=== PATIENT | male | born 1995 | race Caucasian/White ===

== ENCOUNTER 2021-01-18 12:00 | Emergency (ER) | payer BC, SELFPAY ==
[2021-01-18 12:01] VITALS: BP 135/84; PULSE 63; RESP 17; TEMP 36.7; O2SAT 98; BMI 33.2
--- NOTE | 2021-01-18 12:19 | XR_ITS ---
PROCEDURE: XR LUMBAR SPINE 2-3V CLINICAL INDICATION: LOWER BACK PAIN COMPARISON: CR LS5 LUMBAR SPINE 5 VIEWS from 05/24/2014 FINDINGS: No acute fractures or listhesis. Bone density is normal. Vertebral body heights and alignment are maintained. Paravertebral soft tissues are unremarkable IMPRESSION: . no acute fractures or listhesis. Dictated by: Val Lawton 01/18/2021 13:10 Val Lawton in [place] 01/18/2021 13:10
--- NOTE | 2021-01-18 12:19 | XR_ITS ---
PROCEDURE: XR HIP RT 2-3V W/PELVIS CLINICAL INDICATION: RIGHT HIP PAIN COMPARISON: No exams were available for comparison FINDINGS: No fracture or dislocation is evident. No significant degenerative change. No lytic or blastic change. Unremarkable soft tissues. IMPRESSION: No acute findings. Dictated by: Val Lawton 01/18/2021 13:02 Val Lawton in [facility] 01/18/2021 13:02
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
[2021-01-18 13:00] VITALS: BP 145/75; PULSE 116; RESP 18; TEMP 36.6; O2SAT 98
== END 2021-01-18 13:16 | disposition home or self-care (01) ==
PROVIDERS: Emergency Provider Emergency Medicine; PCP Emergency Medicine
DX: S39.012A Strain of muscle, fascia and tendon of lower back, initial encounter (principal); S70.01XA Contusion of right hip, initial encounter; V29.3XXA Motorcycle rider (driver) (passenger) injured in unspecified nontraffic accident, initial encounter; Y92.488 Other paved roadways as the place of occurrence of the external cause
CPT/HCPCS: 72100; 73502; 99282

== ENCOUNTER 2021-04-20 12:53 | Emergency (ER) | payer BC, SELFPAY ==
[2021-04-20] VITALS (14 sets, daily range): BP systolic 112–134; BP diastolic 70–78; PULSE 65–94; RESP 9–20; TEMP 36.9–37.7; O2SAT 90–99; BMI 33.2
--- NOTE | 2021-04-20 13:03 | ECG_ITS ---
APPROVED REPORT Exam: Resting ECG HR:83 bpm ECG Measurements Heart Rate 83 AXES NH 158 P 67 QRSd 110 QRS 22 QT 358 T 45 QTc 420 Conclusion Normal sinus rhythm Normal ECG Electronically signed by : Jonh Hernandez MD 04/21/2021 22:29:49
--- NOTE | 2021-04-20 13:09 | XR_ITS ---
PROCEDURE: XR CHEST PORTABLE CLINICAL HISTORY: sob Covid19 positive COMPARISON: CR CXR CHEST(2 VIEWS-NOT PORTABLE) from 05/24/2014 CR CXR CHEST(2 VIEWS-NOT PORTABLE) from 06/22/2014 CR CXR CHEST(2 VIEWS-NOT PORTABLE) from 11/23/2015 FINDINGS: The cardiomediastinal silhouette and pulmonary vascularity are within normal limits. The lungs are clear without infiltrates, suspicious nodules, or pleural effusions. Left perihilar nodular opacity is present and may be due to granuloma stable since 05/24/2014. No acute bony findings. IMPRESSION: No acute findings. Dictated by: Aydin Vaz MD 04/20/2021 14:03 Aydin Vaz MD in [place] 04/20/2021 14:03
[2021-04-20 13:41] LABS: Basophils # 0.1 K/mm3 (0-0.2); Basophils % 1.5 % (0.1-2.0); Eosinophils % 0.3 % (0.1-12.0); Hematocrit 42.8 % (42.0-52.0); Hemoglobin 14.8 g/dL (14.1-18.0); Lymphocytes # 2.1 K/mm3 (0.7-4.5); Lymphocytes % 43.5 % (10-50); Mean Corpuscular HGB Conc 34.6 g/dL (31.8-35.4); Mean Corpuscular Hemoglobin 29.7 pg (27.0-31.2); Mean Corpuscular Volume 85.7 fl (80-94); Mean Platelet Volume 7.4 fl (7.4-10.4); Monocytes # 0.6 K/mm3 (0.1-1.0); Monocytes % 11.6 % (1.7-9.3); Neutrophils # 2.1 K/mm3 (1.8-7.8); Neutrophils % 43.1 % (37.0-80.0); Platelet Count 314 K/mm3 (142-424); Red Cell Distribution Width 13.2 % (11.5-17.5); White Blood Count 4.8 K/mm3 (4.8-10.8)
[2021-04-20 13:45] LABS: Chloride 98 mmol/L (98-107); Potassium 3.3 mmoL/L (3.5-5.1); Sodium 134 mmol/L (136-145)
[2021-04-20 13:48] LABS: Alanine Aminotransferase 59 U/L (12-78); Albumin Level 4.4 g/dl (3.5-5.0); Albumin/Globulin Ratio 1.3 (1.1-1.8); Alkaline Phosphatase 91 U/L (38-126); Anion Gap 14.3 mEq/L (5-15); Aspartate Amino Transferase 51 U/L (17-59); Bilirubin,Total 0.4 mg/dl (0.2-1.3); Blood Urea Nitrogen 9 mg/dl (9-20); Carbon Dioxide 25 mmol/L (22.0-30.0); Creatinine Clearance Estimated 177 mL/min (50-200); Estimated Glomerular Filt Rate 91 ml/min (>60); GFR (African American) 110 ML/MIN (>60); Globulin 3.5 g/dL (1.3-3.2); Glucose 99 mg/dl (74-100); Total Protein,Serum 7.9 g/dl (6.3-8.2)
--- NOTE | 2021-04-20 13:54 | HMH.EDGENADL ---
ED Disposition Clinical Impression: COVID-19 Disposition: Home, Self-Care Condition on Discharge: Good Additional Instructions: Drink plenty of fluid. Tylenol every 6 hours. Turn to the emergency room for any new symptoms. Take multivitamins daily. Use inhalers as directed. Self quarantine for 2 weeks. Prescriptions: Benzonatate [Tessalon Perle 100mg Cap*] 100 mg PO TID 10 Days #30 cap Transmission Status: Received by [facility] Azithromycin [Zithromax 1gm packet] 1 gm PO ONCE #1 packet Transmission Status: Received by [facility] Referrals: Provider,Referral, [Primary Care Provider] - - Critical Care Critical Care Time: No Attestation: On 04/20/21, the high probability of a clinically significant, sudden or life threatening deterioration of the following system(s) required my full and direct attention, intervention and personal management. The time I documented below is in addition to time spent performing reported procedures but includes the following listed in this critical care notation. Medical Decision Making - Medical Records MR Comment: Patient was given a liter of IV fluid. His oxygen saturation was 96%. Chest x-ray was done. - Serge Inquiry Pt receiving controlled substance: No Serge was queried for this patient: No Vital Signs: 04/20/21 12:53 04/20/21 12:57 04/20/21 13:00 Temperature 98.5 F Temperature Source Oral Pulse Rate 94 H 89 Pulse Rate [Right] 89 Respiratory Rate 20 17 Blood Pressure 134/76 124/73 Blood Pressure [Right Arm] 134/76 Blood Pressure Mean Blood Pressure Mean [Right Arm] 95 02 Sat by Pulse Oximetry 98 98 97 Oxygen Delivery Method Room Air Room Air Oxygen Flow Rate (LPM) 04/20/21 13:31 04/20/21 14:00 04/20/21 14:08 Temperature 100 F H Temperature Source Oral Pulse Rate 81 79 Pulse Rate [Right] Respiratory Rate 18 Blood Pressure 131/70 128/78 Blood Pressure [Right Arm] Blood Pressure Mean Blood Pressure Mean [Right Arm] 02 Sat by Pulse Oximetry 90 L 96 95 Oxygen Delivery Method Room Air Nasal Cannula Nasal Cannula Oxygen Flow Rate (LPM) 2 04/20/21 14:31 04/20/21 15:00 04/20/21 15:01 Temperature Temperature Source Pulse Rate 76 70 74 Pulse Rate [Right] Respiratory Rate 13 9 L 10 L Blood Pressure 114/73 119/70 Blood Pressure [Right Arm] Blood Pressure Mean 85 Blood Pressure Mean [Right Arm] 02 Sat by Pulse Oximetry 99 96 97 Oxygen Delivery Method Nasal Cannula Nasal Cannula Oxygen Flow Rate (LPM) 2 2 04/20/21 15:15 04/20/21 15:30 04/20/21 15:31 Temperature Temperature Source Pulse Rate 71 70 77 Pulse Rate [Right] Respiratory Rate 16 12 14 Blood Pressure 112/74 Blood Pressure [Right Arm] Blood Pressure Mean 80 Blood Pressure Mean [Right Arm] 02 Sat by Pulse Oximetry 95 97 97 Oxygen Delivery Method Oxygen Flow Rate (LPM) 04/20/21 15:45 04/20/21 16:38 Temperature 98.4 F Temperature Source Oral Pulse Rate 65 66 Pulse Rate [Right] Respiratory Rate 12 16 Blood Pressure 124/76 Blood Pressure [Right Arm] Blood Pressure Mean Blood Pressure Mean [Right Arm] 02 Sat by Pulse Oximetry 96 Oxygen Delivery Method Room Air Oxygen Flow Rate (LPM) - Lab Data Lab Results 04/20/21 13:13: WBC 4.8, RBC 5.00, Hgb 14.8, Hct 42.8, MCV 85.7, MCH 29.7, MCHC 34.6, RDW 13.2, Plt Count 314, MPV 7.4, Neut % (Auto) 43.1, Lymph % (Auto) 43.5, Wood % (Auto) 11.6 H, Eos % (Auto) 0.3, Baso % (Auto) 1.5, Neut # (Auto) 2.1, Lymph # (Auto) 2.1, Wood # (Auto) 0.6, Eos # (Auto) 0.0, Baso # (Auto) 0.1 04/20/21 13:13: Sodium 134 L, Potassium 3.3 L, Chloride 98, Carbon Dioxide 25, Anion Gap 14.3, BUN 9, Creatinine 1.00, Estimated Creat Clear 177, Estimated GFR 91, Est GFR ( Amer) 110, Glucose 99, Calcium 9.0, Total Bilirubin 0.4, AST 51, ALT 59, Alkaline Phosphatase 91, Troponin I < 0.01, Total Protein 7.9, Albumin 4.4, Globul
[2021-04-20 14:01] LABS: Troponin I < 0.01 ng/ml (0.00-0.034)
--- NOTE | 2021-04-20 14:24 | PC.NURSE ---
Pt's parents are outside in their car. Pt updated on this and made him aware of visitor policy. Pt verbalizes understanding.
--- NOTE | 2021-04-20 15:28 | PC.NURSE ---
Gave status update to patient ex- with patient permission
== END 2021-04-20 16:39 | disposition home or self-care (01) ==
PROVIDERS: Emergency Provider Internal Medicine
DX: U07.1 COVID-19 (principal); I10 Essential (primary) hypertension
CPT/HCPCS: 71045; 80053; 84484; 85025; 93005; 96365; 99283

== ENCOUNTER → 2021-06-28 14:32 | Outpatient (CLI) | payer BC, SELFPAY ==
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
== END ==
PROVIDERS: PCP Emergency Medicine; Visit Provider Physician Assistant
DX: M54.50 Low back pain, unspecified (principal); M25.561 Pain in right knee
CPT/HCPCS: 72148; 73721; 76376

== ENCOUNTER 2021-07-07 09:00 | Outpatient (RCR) | payer OTHER, BC, SELFPAY ==
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
== END 2021-07-07 09:05 | disposition home or self-care (01) ==
LOC: PT 09:00
PROVIDERS: PCP Emergency Medicine; Visit Provider Physician Assistant
DX: M54.16 Radiculopathy, lumbar region (principal)
CPT/HCPCS: 97010; 97012; 97014; 97035; 97110; 97163; G0283

== ENCOUNTER 2022-04-09 18:38 | Emergency (ER) | payer BC, SELFPAY ==
[2022-04-09 19:19] VITALS: BP 119/72; PULSE 62; RESP 18; TEMP 36.8; O2SAT 97; BMI 32.5
--- NOTE | 2022-04-09 19:19 | HMH.EDUTC ---
[facility] Disposition Clinical Impression: Dental abscess, Pain, dental, Jaw pain Disposition: Home, Self-Care Condition on Discharge: Good Instructions: Tooth Abscess, DI for Tooth Abscess Additional Instructions: Drink plenty of fluids. Take ibuprofen for fever. Take the medications as directed. Follow up with your regular doctor. Make sure you follow up with your dentist. GO TO THE ER FOR ANY WORSENING SYMPTOMS Throw your tooth brush away and get a new one. Quarantine until you know the results of your covid-19 test. Notify your school or workplace of your results and follow their instructions regarding return to work/school. He has been unable to work because of his current symptoms, so his work excuse needs to count for 04/05 (sunday) and 04/06 () of last week. Prescriptions: Ibuprofen [Ibuprofen 800mg Tablet] 800 mg PO Q8HP PRN #30 tab PRN Reason: Moderate Pain Transmission Status: Received by [facility] Amoxicillin/Potassium Clav [Amox-Clav 875-125 mg Tablet] 1 tab PO BID #20 tab Transmission Status: Received by [facility] Referrals: Charlene Moncada APRN [Primary Care Provider] - Time of Disposition: 19:27 Medical Decision Making - Medical Records Medical records reviewed: No: I reviewed the patient's medical records. - Serge Inquiry Pt receiving controlled substance: No Vital Signs: 04/09/22 19:19 Temperature 98.3 F Temperature Source Oral Pulse Rate [Left] 62 Respiratory Rate 18 Blood Pressure [Right Arm] 119/72 Blood Pressure Mean [Right Arm] 87 02 Sat by Pulse Oximetry 97 Orders (Tests/Meds): ED MEDICATIONS Discontinued Medications Generic Name Dose Route Start Last Admin Trade Name Freq PRN Reason Stop Dose Admin Amoxicillin/Clavulanate Potassium 1 each 04/09/22 19:24 04/09/22 19:28 Amoxicillin/Pot Clavulan 500mg Tablet PO 04/09/22 19:25 1 each ONCE ONE Administration [facility] HPI - General Stated complaint: dental pain Time Seen by Provider: 04/09/22 19:19 - History of Present Illness Provider Complaint: He has had severe dental pain for the past 4 days. He has a tooth that is broken in his left upper jaw. He has an appointment with his dentist coming up next Sunday, but he is unable to wait that long to be checked. - Related Data Previous Rx's Medication Instructions Recorded lorazepam 0.5 mg tablet 0.5 mg PO TID #90 tab 08/03/21 gabapentin 300 mg capsule 600 mg PO BID PRN #120 cap 09/15/21 lidocaine 5 % topical patch 1 patch TOPICAL DAILY PRN #30 each 09/15/21 tizanidine 4 mg capsule 4 mg PO TID PRN #90 cap 09/15/21 tramadol 50 mg tablet 100 mg PO BID PRN #60 tab 09/29/21 Amoxicillin/Potassium Clav 1 tab PO BID #20 tab 04/09/22 [Amox-Clav 875-125 mg Tablet] Ibuprofen [Ibuprofen 800mg 800 mg PO Q8HP PRN #30 tab 04/09/22 Tablet] Allergies Allergy/AdvReac Type Severity Reaction Status Date / Time No Known Allergies Allergy Verified 04/09/22 19:21 [facility] History - Hepatitis A Screen Attestation statement:: This patient has been screened for Hepatitis A risk factors. I have reviewed the patient's past medical history: Yes Medical History: Reports:: Anxiety, Hypertension, Migraine Other Medical History: Reports: Other Other Surgeries: Yes: Other Amputation: No Fractures: No - Social History Smoking Status: Current every day smoker Tobacco Type: cigarettes # Packs/Day (cigarettes): 1 Alcohol Intake: current Alcohol Intake Frequency:: a few times a month Substance Use Type: denies use, marijuana Occupational Status: employed Housing: apartment Household Members: family - Psychiatric History Pschychiatric History:: Reports:: Anxiety Family Hx:: Hypertension, Cancer ROS Obtained: Yes All systems reviewed & no additional complaints - Constitutional Constitutional: Denies chills, Denies fever(s) - Eyes Eyes: Denies eye discharge - ENT Ears, Nose, M
[2022-04-09 19:45] VITALS: BP 119/72; PULSE 62; RESP 18; TEMP 36.8
== END 2022-04-09 19:46 | disposition home or self-care (01) ==
PROVIDERS: Emergency Provider Nurse Practitioner Family; PCP Nurse Practitioner Family
DX: K04.7 Periapical abscess without sinus (principal)
CPT/HCPCS: 99212; G0463

== ENCOUNTER 2022-08-06 17:35 | Emergency (ER) | payer SELFPAY ==
[2022-08-06 18:40] VITALS: BP 149/89; PULSE 63; RESP 19; TEMP 36.8; O2SAT 98; BMI 29.5
--- NOTE | 2022-08-06 19:17 | EXP.UTC ---
Discharge Plan Disposition Patient Disposition: Home, Self-Care Condition: Good Prescriptions Prescriptions: New ibuprofen [IBU] 800 mg tablet 800 mg PO TIDP PRN (Reason: Moderate Pain) Qty: 20 0RF amoxicillin-pot clavulanate 875-125 mg Tablet 1 tab PO Q12H Qty: 20 0RF No Action gabapentin 300 mg capsule 600 mg PO BID PRN (Reason: pain) Qty: 120 2RF tizanidine [Zanaflex] 4 mg capsule 4 mg PO TID PRN (Reason: muscle spasticity) Qty: 90 0RF lidocaine 5 % adhesive patch,medicated 1 patch TOPICAL DAILY PRN (Reason: pain) Qty: 30 5RF Rx Instructions: leave on most painful area for up to 12 hrs lorazepam [Ativan] 0.5 mg tablet 0.5 mg PO TID Qty: 90 2RF tramadol 50 mg tablet 100 mg PO BID PRN (Reason: pain) Qty: 60 0RF amoxicillin-pot clavulanate 1 EACH tablet 1 tab PO BID Qty: 20 0RF ibuprofen 800 MG tablet 800 mg PO Q8HP PRN (Reason: Moderate Pain) Qty: 30 0RF Referrals Follow up/Referrals: Will Rodgers MD [Primary Care Provider] - See instructions Activity Restrictions/Add. Instructions Additional Instructions/Restrictions: Use dental balls as directed Take medication as prescribed Follow up with Dentist as schedued Return if needed Straight to ER if any life threatening symptoms Clinical Impressions Clinical Impression: Dental abscess Instructions Patient Instructions: DI for Tooth Abscess, Ibuprofen Discharge ED Provider: Elsa George [facility] General Stated complaint: dental pain Mode of Arrival: Ambulatory Source of Information: Patient Limitations: No Limitations Time Seen by Provider: 08/06/22 19:17 Description of Symptoms (Recalled from Triage Doc. by RN): PATIENT C/O DENTAL PAIN TO RIGHT SIDE X 2 DAYS HEENT Symptoms (Recalled from RN notes): Yes Resp Symptoms (Recalled from RN notes): No Skin Symptoms (Recalled from RN notes): No MS Symptoms (Recalled from RN notes): No Functional Status (Recalled from RN notes): WNL History of Present Illness Provider Complaint: Patient state that he has been having pain on his right upper and lower teeth on the right side State that he has two broken teeth in the right back and one on the top State that he made appointment with dentist but this morning he woke up and his jaw was swollen and having worsening of pain so he came in to get it checked and see if he could get some antibiotics Related Data Previous Rx's Medication Instructions Recorded lorazepam 0.5 mg tablet (Ativan) 0.5 mg PO TID #90 tabs 08/03/21 gabapentin 300 mg capsule 600 mg PO BID PRN pain #120 caps 09/15/21 lidocaine 5 % topical patch 1 patch topical DAILY PRN pain #30 09/15/21 ea tizanidine 4 mg capsule (Zanaflex) 4 mg PO TID PRN muscle spasticity 09/15/21 #90 caps tramadol 50 mg tablet 100 mg PO BID PRN pain #60 tabs 09/29/21 amoxicillin 875 mg-potassium 1 tab PO BID #20 tabs 04/09/22 clavulanate 125 mg tablet ibuprofen 800 mg tablet 800 mg PO Q8HP PRN Moderate Pain 04/09/22 #30 tabs amoxicillin 875 mg-potassium 1 tab PO Q12H #20 tabs 08/06/22 clavulanate 125 mg tablet ibuprofen 800 mg tablet (IBU) 800 mg PO TIDP PRN Moderate Pain 08/06/22 #20 tabs Allergies Allergy/AdvReac Type Severity Reaction Status Date / Time No Known Allergies Allergy Verified 04/09/22 19:21 Worker's Comp Is this a Worker's Comp case?: No [facility] Medical History (Updated 08/06/22 @ 19:26 by Elsa George APRN) Anxiety Social History (Updated 08/06/22 @ 18:51 by Argenis Morales RN) Smoking Status: Current every day smoker tobacco type: cigarettes packs per day: 1 alcohol intake: current substance use type: denies use and marijuana current occupational status: employed Travel in the last 8 weeks: None household members: family housing: apartment number of children: 2 ROS Obtained: Yes All systems reviewed & no additional complaints except as documented and Yes Systems reviewed as appropriate
[2022-08-06 19:27] VITALS: BP 149/89; PULSE 63; RESP 19; TEMP 36.8; O2SAT 98
== END 2022-08-06 19:35 | disposition home or self-care (01) ==
PROVIDERS: Emergency Provider Nurse Practitioner; PCP Emergency Medicine
DX: K04.7 Periapical abscess without sinus (principal); R68.84 Jaw pain; M62.838 Other muscle spasm; F41.9 Anxiety disorder, unspecified; F17.210 Nicotine dependence, cigarettes, uncomplicated; Z79.1 Long term (current) use of non-steroidal anti-inflammatories (NSAID); Z79.899 Other long term (current) drug therapy
CPT/HCPCS: 99212; G0463

== ENCOUNTER 2022-09-07 20:56 | Emergency (ER) | payer BC, MEDICAID, SELFPAY ==
[2022-09-07 20:57] VITALS: BP 120/76; PULSE 62; RESP 17; TEMP 36.7; O2SAT 97; BMI 27.1
--- NOTE | 2022-09-07 21:56 | HMH.EDGENADL ---
Discharge Plan Disposition Patient Disposition: Home, Self-Care Condition: Good Prescriptions Prescriptions: New doxycycline hyclate 100 mg capsule 100 mg PO DAILY 10 Days Qty: 10 0RF No Action gabapentin 300 mg capsule 600 mg PO BID PRN (Reason: pain) Qty: 120 2RF tizanidine [Zanaflex] 4 mg capsule 4 mg PO TID PRN (Reason: muscle spasticity) Qty: 90 0RF lidocaine 5 % adhesive patch,medicated 1 patch TOPICAL DAILY PRN (Reason: pain) Qty: 30 5RF Rx Instructions: leave on most painful area for up to 12 hrs lorazepam [Ativan] 0.5 mg tablet 0.5 mg PO TID Qty: 90 2RF tramadol 50 mg tablet 100 mg PO BID PRN (Reason: pain) Qty: 60 0RF amoxicillin-pot clavulanate 1 EACH tablet 1 tab PO BID Qty: 20 0RF ibuprofen 800 MG tablet 800 mg PO Q8HP PRN (Reason: Moderate Pain) Qty: 30 0RF ibuprofen [IBU] 800 mg tablet 800 mg PO TIDP PRN (Reason: Moderate Pain) Qty: 20 0RF amoxicillin-pot clavulanate 875-125 mg Tablet 1 tab PO Q12H Qty: 20 0RF Referrals Follow up/Referrals: Will Rodgers MD [Primary Care Provider] - See instructions Activity Restrictions/Add. Instructions Additional Instructions/Restrictions: Please follow up with your primary care physician in 1-2 days for further evaluation. You have been given a script for testicular scrotal ultrasound to be performed tomorrow given your chronic testicular pain. Please take antibiotic as prescribed. You have been given antibiotic please take as prescribed given concern for possible infection. You will be called and notified if your STD results aer positive. Clinical Impressions Clinical Impression: Chronic pain in testicle Instructions Patient Instructions: DI for Testicular Pain Discharge ED Provider: Stacey Wilson General Adult HPI General Chief complaint: Urogenital-Male Stated complaint: lump on penis Time Seen by Provider: 09/07/22 21:00 Mode of Arrival: Family Vehicle Source of Information: Patient Limitations: No Limitations Description of Symptoms (Recalled from ER Triage Doc. by RN): Pt c/o lesion to the left side of his scrotum. States it's been there a while but now has become sore. History of Present Illness HPI narrative: Mr. Christopher is a 27 yo w/ no significant PMH presenting to the ED for left sided scrotal lesion. Patient reports it has been there for multiple months, but reports he was in the shower and he rubbed up against it and it was more sore to touch, prompting today's visit. Patient denies any dysuria, hematuria or other urinary sx. No penile discharge. No overlying skin discoloration. No fevers or other infectious like symptoms. One sexual partner, no protection. MD complaint: testicular pain Related Data Previous Rx's Medication Instructions Recorded lorazepam 0.5 mg tablet (Ativan) 0.5 mg PO TID #90 tabs 08/03/21 gabapentin 300 mg capsule 600 mg PO BID PRN pain #120 caps 09/15/21 lidocaine 5 % topical patch 1 patch topical DAILY PRN pain #30 09/15/21 ea tizanidine 4 mg capsule (Zanaflex) 4 mg PO TID PRN muscle spasticity 09/15/21 #90 caps tramadol 50 mg tablet 100 mg PO BID PRN pain #60 tabs 09/29/21 amoxicillin 875 mg-potassium 1 tab PO BID #20 tabs 04/09/22 clavulanate 125 mg tablet ibuprofen 800 mg tablet 800 mg PO Q8HP PRN Moderate Pain 04/09/22 #30 tabs amoxicillin 875 mg-potassium 1 tab PO Q12H #20 tabs 08/06/22 clavulanate 125 mg tablet ibuprofen 800 mg tablet (IBU) 800 mg PO TIDP PRN Moderate Pain 08/06/22 #20 tabs doxycycline hyclate 100 mg capsule 100 mg PO DAILY 10 days #10 caps 09/07/22 Allergies Allergy/AdvReac Type Severity Reaction Status Date / Time No Known Allergies Allergy Verified 04/09/22 19:21 [facility] Disclaimer: The information contained in this section may have been updated after the patient was seen, as this information can be updated by other users. Medical History (Updated 09/07/22 @ 21:54 by Stacey Wilson MD) Riccardo
[2022-09-07 22:11] VITALS: BP 121/70; PULSE 78; RESP 19; TEMP 36.7; O2SAT 98
== END 2022-09-07 22:31 | disposition home or self-care (01) ==
PROVIDERS: Emergency Provider Student in an Organized Health Care Education/Training Program; PCP Emergency Medicine
DX: N50.89 Other specified disorders of the male genital organs (principal); N50.819 Testicular pain, unspecified; G89.29 Other chronic pain
CPT/HCPCS: 96372; 99283

== ENCOUNTER → 2022-09-08 10:36 | Outpatient (CLI) | payer BC, MEDICAID, SELFPAY ==
--- NOTE | 2022-09-08 10:53 | US_ITS ---
FINAL REPORT CLINICAL HISTORY: TESTICULAR PAIN FINDINGS: Technique: Ultrasound images of the testicles were obtained. Findings: The testicles are normal in size. No intratesticular mass identified. Arterial flow is identified bilaterally. There is a small right hydrocele. The epididymal structures are unremarkable. IMPRESSION: No intratesticular mass or evidence of torsion. Small right hydrocele. Reviewed, Interpreted and Dictated by Eric Nelson III, MD Transcribed by Jesús Daugherty Authenticated and [facility]
== END ==
PROVIDERS: PCP Emergency Medicine; Visit Provider Student in an Organized Health Care Education/Training Program
DX: N50.819 Testicular pain, unspecified (principal)
CPT/HCPCS: 76870

== ENCOUNTER → 2022-12-12 09:30 | Outpatient (CLI) | payer MEDICAID, SELFPAY ==
[2022-12-12 13:42] LABS: Basophils # 0.1 K/mm3 (0-0.2); Basophils % 1.3 % (0.1-2.0); Eosinophils # 0.3 K/mm3 (0.0-0.4); Eosinophils % 3.9 % (0.1-12.0); Hemoglobin 14.3 g/dL (14.1-18.0); Lymphocytes % 28.8 % (10-50); Mean Corpuscular HGB Conc 32.6 g/dL (31.8-35.4); Mean Corpuscular Hemoglobin 30.1 pg (27.0-31.2); Mean Corpuscular Volume 92.4 fl (80-94); Monocytes # 0.6 K/mm3 (0.1-1.0); Monocytes % 8.6 % (1.7-9.3); Neutrophils # 3.9 K/mm3 (1.8-7.8); Neutrophils % 57.4 % (37.0-80.0); Platelet Count 387 K/mm3 (142-424); Red Blood Count 4.76 M/mm3 (4.60-6.20); White Blood Count 6.8 K/mm3 (4.8-10.8)
[2022-12-12 13:49] LABS: Alanine Aminotransferase 39 U/L (12-78); Albumin Level 4.3 g/dl (3.5-5.0); Albumin/Globulin Ratio 1.5 (1.1-1.8); Alkaline Phosphatase 97 U/L (38-126); Aspartate Amino Transferase 36 U/L (17-59); Bilirubin,Total 0.4 mg/dl (0.2-1.3); Blood Urea Nitrogen 18 mg/dl (9-20); Calcium 9.3 mg/dl (8.4-10.2); Carbon Dioxide 27 mmol/L (22.0-30.0); Chloride 106 mmol/L (98-107); Estimated Glomerular Filt Rate 136 ml/min (>60); GFR (African American) 165 ML/MIN (>60); Globulin 2.9 g/dL (1.3-3.2); Glucose 82 mg/dl (74-100); Sodium 140 mmol/L (136-145); Total Protein,Serum 7.2 g/dl (6.3-8.2); Uric Acid 5.7 mg/dl (3.5-8.5)
[2022-12-13 18:03] LABS: Vitamin B12 425 pg/mL (239-931)
== END ==
PROVIDERS: PCP Nurse Practitioner Family; Visit Provider Nurse Practitioner Family
DX: M79.671 Pain in right foot (principal); M79.672 Pain in left foot; R20.0 Anesthesia of skin; R53.83 Other fatigue
CPT/HCPCS: 80053; 82607; 84550; 85025

== ENCOUNTER 2023-01-20 11:58 | Emergency (ER) | payer MEDICAID, SELFPAY ==
--- NOTE | 2023-01-20 12:00 | PC.NURSE ---
ARACELIS MATT at
--- NOTE | 2023-01-20 12:03 | CT_ITS ---
PROCEDURE INFORMATION: Exam: CT Head Without Contrast Exam date and time: 01/20/2023 12:35 PM Age: 27 years old Clinical indication: Altered mental status/memory loss; Patient HX: PT unable to remember anything from yesterday, confused. Nkt; Additional info: AMS TECHNIQUE: Imaging protocol: Computed tomography of the head without contrast. Radiation optimization: All CT scans at this facility use at least one of these dose optimization techniques: automated exposure control; mA and/or kV adjustment per patient size (includes targeted exams where dose is matched to clinical indication); or iterative reconstruction. REPORTING DATA: Count of CT and Cardiac NM exams in prior 12 months: This patient has received 0 known CTs and 0 known cardiac nuclear medicine studies in the 12 months prior to the current study. COMPARISON: No relevant prior studies available. FINDINGS: Brain: No evidence of acute parenchymal hemorrhage, extra-axial collection or local regional mass effect. 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 Cerebral ventricles: The ventricles, sulci and cisterns are normal in size and configuration. No hydrocephalus or midline structure shift Pituitary gland and sella: Sellar/parasellar structures, orbits and craniocervical junction are unremarkable Paranasal sinuses: Visualized sinuses are unremarkable. No fluid levels. Mastoid air cells: Visualized mastoid air cells are well aerated. Bones/joints: No calvarial fracture Soft tissues: Unremarkable. IMPRESSION: 1. No acute intracranial abnormality. No calvarial fracture. 2. 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
--- NOTE | 2023-01-20 12:03 | XR_ITS ---
PROCEDURE INFORMATION: Exam: XR Chest Exam date and time: 01/20/2023 12:51 PM Age: 27 years old Clinical indication: Sternal or substernal pain; Patient HX: Cp, body aches, AMS, nkt TECHNIQUE: Imaging protocol: Radiologic exam of the chest. Views: 1 view. COMPARISON: CR XR CHEST PORTABLE 04/20/2021 1:24 PM FINDINGS: Lungs: No evidence of pneumonia or interstitial edema. Pleural spaces: Unremarkable. No pleural effusion. No pneumothorax. Heart/Mediastinum: Unremarkable. No cardiomegaly. Bones/joints: Unremarkable. IMPRESSION: No evidence of pneumonia or interstitial edema.
[2023-01-20 12:04] VITALS: PULSE 84; O2SAT 99
[2023-01-20 12:06] VITALS: BP 127/87; PULSE 83; RESP 20; TEMP 37; O2SAT 99; BMI 30.5
--- NOTE | 2023-01-20 12:10 | ECG_ITS ---
APPROVED REPORT Exam: Resting ECG HR:72 bpm ECG Measurements Heart Rate 72 AXES ND 187 P 69 QRSd 124 QRS 9 QT 393 T 44 QTc 417 Conclusion SINUS RHYTHM MODERATE INTRAVENTRICULAR CONDUCTION DELAY [110+ ms QRS DURATION] BORDERLINE ECG UNCONFIRMED REPORT Electronically signed by : Jonh Hernandez MD 01/21/2023 08:06:16
--- NOTE | 2023-01-20 12:12 | HMH.EDGENADL ---
Discharge Plan Disposition Patient Disposition: Home, Self-Care Condition: Good Prescriptions Prescriptions: No Action buprenorphine-naloxone 8-2 mg tablet, sublingual 1 tab sublingual DAILY clonazepam [Klonopin] 0.5 mg tablet 0.5 mg PO BID bupropion HCl 75 mg tablet 75 mg PO BID Referrals Follow up/Referrals: Will Rodgers MD [Primary Care Provider] - See instructions Clinical Impressions Clinical Impression: Syncope Discharge ED Provider: Guy Kurtz General Adult HPI General Chief complaint: Seizure Stated complaint: Feels like hes recently had a seizure, anxious Time Seen by Provider: 01/20/23 12:00 Mode of Arrival: Ambulatory Source of Information: Patient Limitations: No Limitations Description of Symptoms (Recalled from ER Triage Doc. by RN): pt states he feels like he had a seizure, reports history of seizures, states he woke up on the floor in the bathroom, doesn't remember anything, states he just hurts all over, states he is very anxious as well History of Present Illness HPI narrative: This is a very pleasant 27-year-old gentleman who presents with concerns he had a seizure. Patient woke up this morning and was in his normal state of health. Denies any recent illnesses. States he just remembers waking up in the floor. Family member states he fell in the bathroom. Patient states he hurts all over his entire body here. Believes he had a seizure. States he has had seizures in the past. Family member states only medication he is currently on his Klonopin. He has not missed any doses. Patient also complains of anxiety. Related Data Home Medications Medication Instructions Recorded Confirmed buprenorphine 8 mg-naloxone 2 mg 1 tab sublingual DAILY . 12/12/22 01/20/23 sublingual tablet bupropion HCl 75 mg tablet 75 mg PO BID Depression 01/20/23 01/20/23 clonazepam 0.5 mg tablet (Klonopin) 0.5 mg PO BID seizures 01/20/23 01/20/23 Allergies Allergy/AdvReac Type Severity Reaction Status Date / Time No Known Allergies Allergy Verified 01/20/23 12:27 [facility] Disclaimer: The information contained in this section may have been updated after the patient was seen, as this information can be updated by other users. Medical History Anxiety Social History Smoking Status: Current every day smoker tobacco type: cigarettes packs per day: 1 alcohol intake: current substance use type: denies use and marijuana current occupational status: employed Travel in the last 8 weeks: None household members: family housing: apartment number of children: 2 ROS Obtained: Yes All systems reviewed & no additional complaints except as documented Physical Exam General General appearance: alert and in no apparent distress Head Head exam: atraumatic, normocephalic and normal inspection Eye Eye exam: Present normal appearance, PERRL and EOMI ENT ENT exam: Present normal exam Neck Neck exam: Present normal inspection Chest Chest inspection: Present normal inspection Respiratory Respiratory exam: Present normal lung sounds bilaterally Cardiovascular Cardiovascular exam: Present regular rate and normal rhythm Abdominal Exam Abdominal exam: Present soft Extremities Exam Extremities exam: Present normal inspection Back Exam Back exam: Present normal inspection Neurological Exam Neurological exam: Present alert, oriented X3, CN II-XII intact and normal gait Psychiatric Psychiatric exam: Present normal affect and normal mood Skin Skin exam: Present warm and dry Medical Decision Making Serge Inquiry Pt receiving controlled substance: No Vital Signs: 01/20/23 12:06 01/20/23 12:04 01/20/23 12:41 Temperature 98.6 F Temperature Source Oral Pulse Rate 84 74 Pulse Rate [Right Radial] 83 Respiratory Rate 20 Blood Pressure 133/70
--- NOTE | 2023-01-20 12:19 | PC.NURSE ---
pt ambulatory to the restroom for ua sample
--- NOTE | 2023-01-20 12:21 | PC.NURSE ---
Pt given warm blanket, Family at BS
[2023-01-20 12:25] LABS: Microscopic, Urine URINE MICROSCOPIC (MICROSCOPIC)
[2023-01-20 12:27] LABS: Appearance,Urine CLEAR (Clear); Basophils # 0.1 K/mm3 (0-0.2); Basophils % 0.6 % (0.1-2.0); Blood, Urine Negative (Negative); Color,Urine YELLOW (Yellow); Eosinophils # 0.3 K/mm3 (0.0-0.4); Eosinophils % 3.7 % (0.1-12.0); Glucose,Urine (UA) Negative (Negative); Hematocrit 42.8 % (42.0-52.0); Hemoglobin 14.9 g/dL (14.1-18.0); Ketones,Urine TRACE (Negative); Leukocyte Esterase,Urine Negative (Negative); Lymphocytes # 2.3 K/mm3 (0.7-4.5); Lymphocytes % 28.3 % (10-50); Mean Corpuscular HGB Conc 34.7 g/dL (31.8-35.4); Mean Corpuscular Hemoglobin 30.3 pg (27.0-31.2); Mean Corpuscular Volume 87.1 fl (80-94); Mean Platelet Volume 7.4 fl (7.4-10.4); Monocytes # 0.6 K/mm3 (0.1-1.0); Monocytes % 7.3 % (1.7-9.3); Neutrophils # 4.9 K/mm3 (1.8-7.8); Nitrate,Urine Negative (Negative); PH,Urine 6.5 (5.0-8.5); Platelet Count 341 K/mm3 (142-424); Protein,Urine TRACE (Negative); Red Blood Count 4.91 M/mm3 (4.60-6.20); Red Cell Distribution Width 12.8 % (11.5-17.5); White Blood Count 8.2 K/mm3 (4.8-10.8)
--- NOTE | 2023-01-20 12:32 | PC.NURSE ---
pt transported to radiology.
[2023-01-20 12:35] LABS: Chloride 98 mmol/L (98-107); Potassium 3.8 mmoL/L (3.5-5.1); Sodium 139 mmol/L (136-145)
[2023-01-20 12:37] LABS: Alanine Aminotransferase 57 U/L (12-78); Aspartate Amino Transferase 48 U/L (17-59); Blood Urea Nitrogen 8 mg/dl (9-20); Creatinine Clearance Estimated 231 mL/min (50-200); Estimated Glomerular Filt Rate 136 ml/min (>60); GFR (African American) 165 ML/MIN (>60)
[2023-01-20 12:38] LABS: Albumin Level 4.2 g/dl (3.5-5.0); Albumin/Globulin Ratio 1.2 (1.1-1.8); Alkaline Phosphatase 89 U/L (38-126); Anion Gap 14.8 mEq/L (5-15); Bilirubin,Total 0.7 mg/dl (0.2-1.3); Calcium 9.3 mg/dl (8.4-10.2); Carbon Dioxide 30 mmol/L (22.0-30.0); Globulin 3.4 g/dL (1.3-3.2); Glucose 126 mg/dl (74-100); Total Protein,Serum 7.6 g/dl (6.3-8.2)
--- NOTE | 2023-01-20 12:39 | PC.NURSE ---
pt returned from radiology.
[2023-01-20 12:41] VITALS: BP 133/70; PULSE 74; O2SAT 96
--- NOTE | 2023-01-20 12:46 | PC.NURSE ---
went in to hook patient up to bp cuff. pt told me his mom just told him [place]. states he remembers going to work yesterday but that's it. states he doesn't know where his motorcycle, keys, or phone is. reports something similar to this about a year ago. he was seen at for this and they told him he has some type of psychosis. dr ebst aware. uds ordered.
[2023-01-20 12:48] LABS: Bilirubin,Urine Negative (Negative)
[2023-01-20 13:00] VITALS: BP 118/56; PULSE 66; O2SAT 98
[2023-01-20 13:05] LABS: Amphetamine/Metha Screen,Urine Negative ng/ml (<1000); Benzodiazepines Screen,Urine Negative ng/ml (<200)
[2023-01-20 13:06] LABS: Barbiturates Screen,Urine Negative ng/ml (<200); Cannabinoid Screen,Urine Negative ng/ml (<50)
[2023-01-20 13:07] LABS: Cocaine Screen,Urine Negative ng/ml (<300); Troponin I < 0.01 ng/ml (0.00-0.034)
[2023-01-20 13:08] LABS: Methadone Screen,Urine Negative ng/ml (<300); Opiate Screen,Urine Negative ng/ml (<300)
[2023-01-20 13:09] LABS: Phencyclidine Screen,Urine Negative ng/ml (<25)
--- NOTE | 2023-01-20 13:14 | PC.NURSE ---
lizet thornton at bedside updating pt.
[2023-01-20 13:31] VITALS: BP 123/59; PULSE 63; RESP 18; TEMP 36.8; O2SAT 97
[2023-01-20 13:41] LABS: Bacteria,Urine Trace /lpf; Mucus,Urine Trace /lpf; Squamous Epithelial Cell,Urine Occasional #/hpf (0-5); WBC,Urine Occasional #/hpf (0-3)
== END 2023-01-20 13:32 | disposition home or self-care (01) ==
PROVIDERS: Emergency Provider Emergency Medicine; PCP Emergency Medicine
DX: R55 Syncope and collapse (principal); F17.210 Nicotine dependence, cigarettes, uncomplicated
CPT/HCPCS: 70450; 71045; 80053; 80305; 81001; 84484; 85025; 93005; 96360; 99285

== ENCOUNTER 2023-01-20 22:19 | Emergency (ER) | payer MEDICAID, SELFPAY ==
[2023-01-20 22:30] VITALS: BP 133/71; PULSE 83; RESP 17; TEMP 36.7; O2SAT 99; BMI 30.5
[2023-01-20 22:55] VITALS: BP 133/71; PULSE 82; O2SAT 96
[2023-01-20 23:00] VITALS: BP 133/90; PULSE 80; O2SAT 97
--- NOTE | 2023-01-20 23:23 | HMH.EDANX ---
Discharge Plan Disposition Patient Disposition: Home, Self-Care Chief Complaint: Anxiety Prescriptions Prescriptions: No Action buprenorphine-naloxone 8-2 mg tablet, sublingual 1 tab sublingual DAILY clonazepam [Klonopin] 0.5 mg tablet 0.5 mg PO BID bupropion HCl 75 mg tablet 75 mg PO BID Referrals Follow up/Referrals: Will Rodgers MD [Primary Care Provider] - See instructions Clinical Impressions Clinical Impression: Acute anxiety Instructions Patient Instructions: DI for Anxiety -- Adult, Anxiety Disorders Discharge ED Provider: Vishal (ED)Will Anxiety HPI General Chief Complaint: Anxiety Stated Complaint: anxiety Time Seen by Provider: 01/20/23 23:23 Mode of Arrival: Family Vehicle Source of Information: Patient, Parent(s) and Medical Record Limitations: No Limitations Description of Symptoms (Recalled from ER Triage Doc. by RN): Pt brought in by family for maybe a nervous breakdown . Pt was seen in ER earlier for possible seizure like actiivty. States he was dx with anxiety and was given Ativan 1mg PO upon discharge. Family states she felt the medication helped him. They were all afternnon and evening with family and cooked together. Staes at the dinner table her started to act the same way as earlier but worse . He reports pain to face, R arm, and R leg. He denies any falls, trauma, or illicit drug use. 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 He is crying and weeping while answering questions. When asked what happened? He reports I don't know . History of Present Illness HPI narrative: pt with acute episode of anxiety - has hx of same - was here earlier and had stable exam and labs and ct head - pt reports feeling anxiety w/o specific issue and denied self harm complaint: anxiety Onset (ago): hour(s) Symptoms: extremity numbness/tingling Severity: moderate Quality: intermittent Place: home History of similar episodes: Yes Provoking factors: emotional stress Associated symptoms: denies other symptoms Related Data Home Medications Medication Instructions Recorded Confirmed buprenorphine 8 mg-naloxone 2 mg 1 tab sublingual DAILY . 12/12/22 01/20/23 sublingual tablet bupropion HCl 75 mg tablet 75 mg PO BID Depression 01/20/23 01/20/23 clonazepam 0.5 mg tablet (Klonopin) 0.5 mg PO BID seizures 01/20/23 01/20/23 Allergies Allergy/AdvReac Type Severity Reaction Status Date / Time No Known Allergies Allergy Verified 01/20/23 12:27 [facility] Disclaimer: The information contained in this section may have been updated after the patient was seen, as this information can be updated by other users. Medical History Anxiety Social History Smoking Status: Current every day smoker tobacco type: cigarettes packs per day: 1 alcohol intake: current substance use type: denies use and marijuana current occupational status: employed Travel in the last 8 weeks: None household members: family housing: apartment number of children: 2 ROS Obtained: Yes All systems reviewed & no additional complaints except as documented Physical Exam General General appearance: alert Head Head exam: normocephalic Eye Eye exam: Present PERRL and EOMI; Absent scleral icterus ENT ENT exam: Present mucous membranes moist Neck Neck exam: Present trachea midline Respiratory Respiratory exam: Absent respiratory distress Cardiovascular Cardiovascular exam: Present regular rate Abdominal Exam Abdominal exam: Present soft Extremities Exam Extremities exam: Present full ROM Neurological Exam Neurological exam: Present alert, oriented X3 and CN II-XII intact; Absent motor sensory deficit Psychiatric Psychiatric exam: Present anxious and other (no acute psychosis); Absent homicidal ideation or suicidal ideation Skin Skin exam: Absent rash Medical Decisio
[2023-01-20 23:26] VITALS: BP 133/90; PULSE 79; RESP 19; TEMP 36.7; O2SAT 99
== END 2023-01-20 23:32 | disposition home or self-care (01) ==
PROVIDERS: Emergency Provider Emergency Medicine; PCP Emergency Medicine
DX: F41.9 Anxiety disorder, unspecified (principal); F17.210 Nicotine dependence, cigarettes, uncomplicated
CPT/HCPCS: 99283; 99284